=== PATIENT | female | born 1980 | race Caucasian/White ===

== ENCOUNTER 2022-01-14 19:24 | Emergency (ER) | payer BC, SELFPAY ==
[2022-01-14 19:30] VITALS: BP 153/84; PULSE 58; RESP 20; TEMP 36.8; O2SAT 100
--- NOTE | 2022-01-14 19:31 | ED.URI ---
HPI - URI/Sore Throat General Chief Complaint: Upper Respiratory Infection Stated Complaint: Sore Throat/Ear Pain Time Seen by Provider: 01/14/22 19:37 Source: patient and RN notes reviewed Mode of arrival: ambulatory Limitations: no limitations History of Present Illness HPI Narrative: 41-year-old female presents with concern for right ear pain and sore throat. She denies nasal congestion, rhinorrhea. Reports occasional cough. She denies fever, bodies, chills, sweats. Denies sick contacts. Denies [id number] intervention. MD elicited complaint: sore throat and other (Ear pain) Related Data Home Medications Medication Instructions Recorded Confirmed norgestimate 0.25 mg-ethinyl 1 tablet PO DAILY 01/14/22 01/14/22 estradiol 35 mcg tablet (Rosmery) trazodone 50 mg tablet 50 mg PO BID PRN sleep 01/14/22 01/14/22 Allergies Allergy/AdvReac Type Severity Reaction Status Date / Time No Known Allergies Allergy Verified 01/14/22 19:46 Review of Systems Review of Systems: CONSTITUTIONAL: Denies malaise, chills, sweats, or fever. EYES: Denies visual changes, redness, or discharge. ENT: Denies rhinorrhea, congestion, sinus pain. Reports otalgia and sore throat. CARDIOVASCULAR: Denies chest pain, palpitations, or edema. RESPIRATORY: Reports cough. Denies dyspnea. GASTROINTESTINAL: Denies abdominal pain, nausea, vomiting, diarrhea SKIN: Denies rash or itching. MUSCULOSKELETAL: Denies myalgia. NEUROLOGIC: Denies headache. All systems reviewed & are unremarkable except as noted in HPI and below PMFSH Past Medical History Medical History Anxiety History of PCOS Hyperlipidemia Insomnia Surgical History Surgical History H/O LEEP November 1999 H/O: November 2007 Family History Family History Grandparent Brain cancer Grandparent Heart disease Hypertension Graves disease Mother PAD (peripheral artery disease) Social History Social History Smoking status: Never smoker Tobacco type: e-cigarettes/vaping Second hand tobacco smoke exposure: No Alcohol intake: never Substance use: never Substance use type: does not use Comments At time of signature, agree with nursing past medical, surgical, social and family history. There is no relevant family history pertinent to the presenting complaint Exam Narrative: GENERAL: Well-appearing, well-nourished, and in no acute distress. HEAD: Normocephalic EYES: PERRLA, conjunctivae clear ENT: Nares clear, no discharge. Mucous membranes moist. TM pearly flores with dull light reflex bilaterally; no tragal tenderness. Oropharynx not erythematous without lesions. Tonsils not enlarged and without exudate, no drooling, no hoarseness, no trismus, uvula midline. NECK: Supple. No lymphadenopathy CHEST: Clear to auscultation, breath sounds equal. No wheezing, rhonchi, rales, or stridor. No respiratory distress, speaks in full sentences. HEART: Regular rate and rhythm. No murmur heard. SKIN: Warm, dry, no rash. NEURO: Alert and oriented x3. PSYCH: Normal mood and affect Course Course Emergency Course: Patient is aware of diagnosis, understands and agrees to treatment plan. Anticipatory guidance given. Patient agrees to follow-up as directed and is aware of reasons to seek care at the emergency department. Portions of this record may have been created with voice recognition software Level of Care: Express Care Visit Vital Signs Vital signs: Reviewed. MDM - URI/Sore Throat MDM Narrative Medical decision making narrative: Differential diagnosis considered: Juarez virus, strep pharyngitis, allergic rhinitis, upper respiratory tract infection, sinusitis, rhinosinusitis, nasopharyngitis. viral pharyngitis, otitis media, otitis externa, pneumonia, b
[2022-01-14 19:45] VITALS: BP 153/84; PULSE 58; RESP 20; TEMP 36.8; O2SAT 100
== END 2022-01-14 20:08 | disposition home or self-care (01) ==
PROVIDERS: Emergency Provider Nurse Practitioner; PCP Family Medicine
DX: J06.9 Acute upper respiratory infection, unspecified (principal); Z20.822 Contact with and (suspected) exposure to COVID-19; F17.290 Nicotine dependence, other tobacco product, uncomplicated; E28.2 Polycystic ovarian syndrome; E78.2 Mixed hyperlipidemia; F41.9 Anxiety disorder, unspecified
CPT/HCPCS: 87081; 87426; 87880; 99213; C9803; G0463

== ENCOUNTER 2024-09-28 16:51 | Emergency (ER) | payer BC, SELFPAY ==
[2024-09-28 16:57] VITALS: BP 142/75; PULSE 74; RESP 16; TEMP 37; O2SAT 100
--- NOTE | 2024-09-28 17:19 | ED.URI ---
HPI - URI/Sore Throat General Chief Complaint: Upper Respiratory Infection Stated Complaint: Passed Out/Congestion Time Seen by Provider: 09/28/24 17:15 Source: patient, RN notes reviewed and old records reviewed Mode of arrival: ambulatory Limitations: no limitations History of Present Illness HPI Narrative: 43 year old female who presents to [facility] care with complaints of having stuffy nose, sore throat and congestion increased since yesterday with fever up to 100.7F. Patient reports that she has had some sinus pressure and drainage for about 2 weeks and had been taking antihistamine. She states that yesterday morning she was sitting on toilet and next thing she knew she was on bathroom floor and dogs were licking her face. She states that she went back to bed and slept for 15 hours yesterday. She reports that she called her doctor and he recommended she get flu test. Patient states that she has been taking cold and flu medication. Patient reports that she had residential monitor done last year with no abnormality MD elicited complaint: sore throat, rhinorrhea, nasal congestion, sinus pain and other Onset (ago): week(s) (stuffy nose sore throat and congestion increased since yesteray and passed out, states some sinus congestion 2 weeks) Consistency: progressively worsening Pain scale (0-10): 5 Description of mucous: clear Able to tolerate fluids by mouth: Yes Treatments prior to arrival: other (cold and flu medication) Related Data Home Medications ?Medication ?Instructions ?Recorded ?Confirmed ?Last Taken ?Type norgestimate 0.25 mg-ethinyl 1 tablet PO DAILY 01/14/22 09/28/24 Unknown History estradiol 35 mcg tablet (Rosmery) Allergies Allergy/AdvReac Type Severity Reaction Status Date / Time No Known Allergies Allergy Verified 09/28/24 17:26 Review of Systems Review of Systems: CONSTITUTIONAL: reports malaise, chills, sweats, or fever. EYES: Denies visual changes, redness, or discharge. ENT: Reports rhinorrhea, congestion, sinus pain, no otalgia and positive for sore throat. CARDIOVASCULAR: Denies chest pain, palpitations, or edema. RESPIRATORY: Reports no acute cough.? Denies dyspnea. GASTROINTESTINAL: Denies abdominal pain, nausea, vomiting, diarrhea SKIN: Denies rash or itching. MUSCULOSKELETAL: some myalgia. NEUROLOGIC: intermittent headache. All systems reviewed & are unremarkable except as noted in HPI and below PMFSH Past Medical History Medical History Anxiety Insomnia History of PCOS Hyperlipidemia Surgical History Surgical History H/O LEEP November 1999 H/O: November 2007 Family History Family History Grandparent Brain cancer Grandparent Heart disease Hypertension Graves disease Mother PAD (peripheral artery disease) Social History Social History Smoking status: Current every day smoker Tobacco type: e-cigarettes/vaping Second hand tobacco smoke exposure: No Alcohol intake: never Substance use: never Substance use type: does not use Lack of Transportation: No Lack of Food: Never True Current Housing: I Have Housing Concerned About Future Housing: No Difficulty Paying Gas/Electric Bills: No Difficulty Paying for Meds: No Currently Unemployed: No Education: High School Diploma/GED Difficulty w/ Childcare or Family Care: No Living arrangements: with family Occupation/Education: occupation Gender identity (if verbalized by the patient): Female Agree to blood products: Yes Comments At time of signature, agree with nursing past medical, surgical, social and family history. There is no relevant family history pertinent to the presenting complaint Exam Narrative: GENERAL: Well-appearing, well-nourished, and in no acute distress. HEAD: Normocephalic EYES: PERRLA, conjunctivae clear ENT: Nares clear, turbinates edematous and erythematous, clear discharge. Mucous membranes moist, sinus pressure intermittent headache.. TM pearly flores with dull light reflex bilaterally; no tragal tenderness. Oropharynx erythematous without lesions. Tonsils not enlarged and without exudate, no drooling, no hoarseness, no trismus, uvula midline.post nasal drainage noted NECK: Supple. No lymphadenopathy CHEST: Clear to auscultation, breath sounds equal. No wheezing, rhonchi, rales, or stridor. No respiratory distress, speaks in full sentences.no acute cough, SAO2 100% on room air HEART: Regular rate and rhythm. No murmur heard. SKIN: Warm, dry, no rash. NEURO: Alert and oriented x3. PSYCH: Normal mood and affect Course Course Emergency Course: Patient is aware of diagnosis, understands and agrees to treatment plan.? Anticipatory guidance given.? Patient agrees to follow-up as directed and is aware of reasons to seek care at the emergency department. Portions of this record may have been created with voice recognition software Level of Care: Express Care Visit Vital Signs Vital signs: Vital Signs Temperature 37.0 C 09/28/24 16:57 Pulse Rate 74 09/28/24 16:57 Respiratory Rate 16 09/28/24 16:57 Blood Pressure 142/75 H 09/28/24 16:57 Pulse Oximetry 100 09/28/24 16:57 Oxygen Delivery Room Air 09/28/24 16:57 Temperature 37.0 C 09/28/24 16:57 Pulse Rate 74 09/28/24 16:57 Respiratory Rate 16 09/28/24 16:57 Blood Pressure 142/75 H 09/28/24 16:57 Pulse Oximetry 100 09/28/24 16:57 Oxygen Delivery Room Air 09/28/24 16:57 Reviewed MDM - URI/Sore Throat MDM Narrative Medical decision making narrative: Differential diagnosis considered: Juarez virus, strep pharyngitis, allergic rhinitis, upper respiratory tract infection, sinusitis, rhinosinusitis, nasopharyngitis. viral pharyngitis, otitis media, otitis externa, pneumonia, bronchitis, viral cough syndrome, viral syndrome, and influenza.? Exam findings show no acute concerns or changes; patient is non-toxic appearing and is in no distress.? Patient is appropriate for outpatient treatment and follow-up. Differential Diagnosis Differential diagnosis: Likely upper respiratory infection, sinusitis, viral infection, influenza and other (COVID) Medical Records Attestation: I reviewed the patient's medical records. Lab Data Attestation: I reviewed the patient's lab results. Lab results narrative: Influenza A negative, Influenza B negative, COVID antigen negative Labs: Lab Results 09/28/24 Range/Units 17:38 POC Influenza A Ag Negative (Negative) POC Influenza B Ag Negative (Negative) POC SARS CoV-2 Ag Negative (Negative) reviewed Critical Care Time Critical Care Time Critical Care Time: No Discharge Plan Discharge Clinical Impression: Sinusitis Qualifiers: Sinusitis location: pansinusitis Chronicity: acute Recurrence: not specified as recurrent Qualified Code(s): J01.40 - Acute pansinusitis, unspecified Patient Disposition: Home, Self-Care Condition: Stable Instructions: Antibiotic Form, Sinusitis (ED) Additional Instructions: Increase fluids especially juices and water [id number] cough and cold medicine of your choice for your symptoms Zyrtec Claritin or Lizbeth daily heat to the face 20-30 minutes 4-6 times a day for pain Salt water gargles, throat lozenges or throat sprays as desired Antibiotic as directed--finished the medication If your symptoms persist, change or worsen significantly before you can contact your personal physician then please, without delay, go to the emergency department for further evaluation. Follow-up with PCP in 7-10 days or sooner if needed Follow up with PCP soon in regards to your blood pressure which is elevated above threshold for referral. Blood pressure above 120/80 may indicate pre-hypertension. 142/75 Patient Language: Filipino Prescriptions: New amoxicillin 875 mg tablet 875 mg PO Q12H Qty: 20 0RF No Action norgestimate-ethinyl estradiol [Rosmery] 0.25-35 mg-mcg tablet 1 tablet PO DAILY buspirone 5 mg tablet See Rx Instructions PO BID PRN (Reason: anxiety) Qty: 60 1RF Rx Instructions: Take 1 or 2 tabs orally twice a day PRN; bupropion HCl 150 mg tablet extended release 24 hr 150 mg PO QAM Qty: 90 1RF diclofenac sodium 75 mg tablet,delayed release (DR/EC) 75 mg PO BID Qty: 60 2RF trazodone 50 mg tablet See Rx Instructions PO QHS PRN (Reason: sleep) Qty: 180 0RF Rx Instructions: Take 1 or 2 tabs orally every day at bedtime PRN; Follow-up/Referrals: Laverne Kearns NP [Primary Care Provider] - Time of Disposition: 17:43 Quality Darline Coma Scale Eyes: Open Verbal: Oriented and Alert Motor: Follows Commands Spencer Coma Total Score: 15
[2024-09-28 17:40] LABS: EDCOVIDSCREEN Negative (Negative); EDINFLUASCREEN Negative (Negative); EDINFLUBSCREEN Negative (Negative)
--- OUTSIDE RECORDS SUMMARY | 2024-09-28 18:31 | XMS_ITS | Clinical Summary ---
Author Organization [facility] Address [address] [place] [address] Care Team Providers Care Scrap Separator Name Role Phone Unknown, Notinfile Primary Care Provider Unavail able Yogesh Trujillo MD Unavailable Allergies No known active allergies Active Problems Problem Noted Date Diagnosed Date Blood glucose abnormal 09/26/2013 Overview (11/06/2016): ABNORMAL GLUCOSE NEC Pure hypercholesterolemia 01/10/2013 Overview (11/05/2016): PURE HYPERCHOLESTEROLEM Overweight 01/10/2013 Overview (11/06/2016): Overweight Abnormal weight gain 10/06/2011 Overview (11/06/2016): ABNORMAL WEIGHT GAIN Surgical History Surgery Date Site/Laterality Comments SECTION section TONSILLECTOMY Tonsillectomy Medical History Medical History Date Comments Hyperlipidemia Hyperlipidemia Hx Other Medical miscarriage Hx Other Medical NOT CLAUSTROPHO BIC; Comments: WORKMAN 05/04/2014 - Cervical ca (CMS/HCC) (HCC) 1999 Smoking Family History Medical History Relation Name Comments Obesity Father Obesity; Coronary artery disease Maternal Grandfather Coronary artery disease; Hypertension Maternal Grandfather Hyperte nsion; Hyperlipidemia Mother Hyperlipidemi a; Breast cancer Neg Hx Ovarian cancer Neg Hx Thyroid cancer Neg Hx Relation Name Status Comments Father Maternal Grandfather Mother Social History Tobacco Use Types Packs/Day Years Used Date Smoking Tobacco: Every Day Alcohol Use Standard Drinks/Week Comments No 0 (1 standard drink = 0.6 oz pur e alcohol) Comments No Sex and Gender Information Value Date Recorded Sex Assigned at Not on file Legal Sex Female 3:42 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 Gender Identity Not on file Sexual Orientation Not on file Obstetrics History Para Term AB IAB SAB Ectopic Multiple Livin g Live Births 4 1 1 Date Outcome GA Total Labor Labor/2nd/3rd Weight Sex Type Anes PTL Lisa A1 A5 Name Clin Term Last Filed Vital Signs Vital Sign Reading Time Taken Comments Blood Pressure 102/70 05/04/2014 8:32 AM CDT Pulse 88 05/04/2014 8:32 AM CDT Temperature - - Respiratory Rate - - Oxygen Saturation - - Inhaled Oxygen Concentration - - Weight 81.6 kg (180 lb) 05/04/2014 8:32 AM CDT Height 154.9 cm (5' 1 ) 06/11/2022 1:43 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 Body Mass Index 32.92 05/04/2014 8:32 AM CDT Plan of Treatment Health Maintenance Due Date Last Done Comments Cervical Cancer Screening 1981 Depression Screening 1981 Hepatitis C Screening 1981 DTaP/Tdap/Td Vaccine (1 - Tdap) 1992 Varicella Vaccines (1 of 2 - 13+ 2-dose series) 1994 Hepatitis B Screening 12/02/1999 Regular Well Visit/Exam 18-64 12/02/1999 Pneumococcal vaccine <65 (1 of 2 - PCV) 2000 Covid-19 Vaccine ( - 2023-2 5 season) 2024 08/17/2021, 11/08/2020 Influenza Vaccine (#1) 2024 05/04/2020 Breast Cancer Screening-Mammogram 10/12/2024 10/13/2023, 06/11/2022 HPV Vaccines Aged Out No longer eligi ble based on patient's age to complete this topic Procedures Procedure Name Priority Date/Time Associated Diagnosis Comments SCREENING MAMMOGRAM BILATERAL W FAMILIA Schedule Routine, Read Routine (OP Routine) 10/13/2023 11:28 AM CDT Screening mammogram, encounter for from Last 3 Months or Most Recently Relevant to Health Maintenance Results * Screening Mammogram Bilateral W Familia (10/13/2023 11:28 AM CDT) Anatomical Region Laterality Modality Breast Bilateral Mammography 10/13/2023 12:3 2 PM CDT Impressions 10/13/2023 12:32 PM CDT There is no mammographic evidence of malignancy. A 1 year screening mammogram is recommended. BI-RADS: 1 - Negative. The patient has been or will be contacted. The patient will be entered into a reminder system with a target due date of 1 year for her next mammogram. Electronically signed by: PENELOPE Butts 10/13/2023 12:32 PM CDT EXAMINATION: SCREENING MAMMOGRAM BILATERAL W FAMILIA ORDERING HEALTHCARE PROVIDER: SELF SCREENING MAMMOGRAM HISTORY: Routine screening mammography. COMPARISON: 06/11/2022. TECHNIQUE: CC and MLO views of both breasts were obtained with digital technique using digital breast tomosynthesis with C view. Computer aided detection was utilized. FINDINGS: DENSITY: The breasts are heterogeneously dense, which may obscure small masses. BREASTS: There is no new suspicious finding in either breast on mammogram. us Self Screening Mammogram IMG MAMMO PROCEDURES Fi nal Result from Last 3 Months or Most Recently Relevant to Health Maintenance Insurance [facility] Care Teams Scrap Separator Relationship Specialty Start Date End Date Unknown, Notinfile PCP - General 08/25/23 Yogesh Trujillo MD [address] [facility] [address] JARON Tran [address] [address] Consulting Physician Obstetrics and Gynecology 08/25/23
--- OUTSIDE RECORDS SUMMARY | 2024-09-28 18:31 | XMS_ITS | Referral Summary ---
Author Organization [facility] Address [address] [place] [address] Care Team Providers Care Equipment Mechanic Specialist Name Role Phone Unknown, Notinfile Primary Care Provider Unavail able Yoegsh Trujillo MD Unavailable [phone] Allergies No known active allergies Active Problems Problem Noted Date Diagnosed Date Blood glucose abnormal 09/26/2013 Overview (11/06/2016): ABNORMAL GLUCOSE NEC Pure hypercholesterolemia 01/10/2013 Overview (11/05/2016): PURE HYPERCHOLESTEROLEM Overweight 01/10/2013 Overview (11/06/2016): Overweight Abnormal weight gain 10/06/2011 Overview (11/06/2016): ABNORMAL WEIGHT GAIN Social History Tobacco Use Types Packs/Day Years Used Date Smoking Tobacco: Every Day Alcohol Use Standard Drinks/Week Comments No 0 (1 standard drink = 0.6 oz pur e alcohol) Comments No Sex and Gender Information Value Date Recorded Sex Assigned at Not on file Legal Sex Female 3:42 PM [employer] LIBRARIAN Gender Identity Not on file Sexual Orientation Not on file Last Filed Vital Signs Vital Sign Reading Time Taken Comments Blood Pressure 102/70 05/04/2014 8:32 AM CDT Pulse 88 05/04/2014 8:32 AM CDT Temperature - - Respiratory Rate - - Oxygen Saturation - - Inhaled Oxygen Concentration - - Weight 81.6 kg (180 lb) 05/04/2014 8:32 AM CDT Height 154.9 cm (5' 1 ) 06/11/2022 1:43 PM [employer] MUSIC LIBRARIAN Body Mass Index 32.92 05/04/2014 8:32 AM CDT Plan of Treatment Not on file Procedures Procedure Name Priority Date/Time Associated Diagnosis [...] Most Recently Relevant to Health Maintenance Insurance [facility] Care Teams Equipment Mechanic Specialist Relationship Specialty Start Date End Date Unknown, Notinfile PCP - General 08/25/23 Yogesh Trujillo MD [address] [place] [address] [place] [address] Consulting Physician Obstetrics and Gynecology 08/25/23
--- OUTSIDE RECORDS SUMMARY | 2024-09-28 18:32 | XMS_ITS | Data Portability ---
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 no new issues. 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 does well on OCPs first mammo order today son is 14 plays football. Not available 04/22/2022 17:18:18 04/28/2023 04/28/2023 educator senior clinical exam benign doing well on OCPs good spirits 16 y.o. 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 Lab cytology report, thin prep, smear or scraping, cervical or vaginal 2023 024 [facility], [address] [facility], [address], [place], [address], 4 16:13:44 vaginal pathogens panel, DANETTE+probe, vaginal fluid 2023 024 [facility], [address], [address], [place], [address], 4 07:16:16 cytology report, thin prep, smear or scraping, cervical or vaginal 2022 023 [facility], [address] [facility], [address], [place], [address], 3 07:17:24 cytology report, thin prep, smear or scraping, cervical or vaginal 2021 022 [facility], [address], [address], [place], [address], 2 16:11:22 cytology report, thin prep, smear or scraping, cervical or vaginal 2020 021 [facility], [address], [address], [place], [address], 1 16:12:02 Referral None recorded. Procedures None recorded. Surgeries None recorded. Imaging MAMMO, screening, digital, bilateral 2023 024 [facility], [address] [facility] [place], [address], 4 09:55:37 MAMMO, screening, digital, bilateral 2022 023 [facility], [address] [facility] [place], [address], 4 17:10:59 MAMMO, screening, digital, bilateral [facility] [address] [facility] [place], [address], 2 17:28:23 Medication Orders Estarylla 0.25 mg-35 mcg tablet 2023 024 [id number], [address], [place], [place], [id number], 4 14:45:16 Estarylla 0.25 mg-35 mcg tablet 2022 023 [id number], [address] [place], [place], [id number], 16:24:03 Patient TargetsNo targets recorded. Patient Instructions Encounter Date Encounter Id Patient Instructions Last Modified By Organization Details Last Modified Time 04/22/2022 [id number] learning about breast cancer screening er Not available 04/22/2022 17:11:41 04/28/2023 [id number] A healthy lifestyle: care instructions Not available 04/28/2023 16:09:57 learning about breast cancer screening er Not available 04/28/2023 16:09:57 05/27/2024 [id number] mammogram: about this test Not available 05/27/2024 15:28:02 A healthy lifestyle: care instructions Not available 05/27/2024 15:28:02 Quitting Tobacco : Care Instructions [email or web address] Not available 05/27/2024 15:28:02 Reason for Referral None Reported. Results Created Date Observation Date Name Description Value Unit Range Abnormal Flag Note LastModifiedBy Organization Detail LastModifiedTime 04/16/2004/18/2021 IGP, RFX APTIM A HPV ASCU diagnosis: Commen t NEGAT PAGE FOR INTRA EPITH ELIAL LESIO N OR ROBIN MORAN . Not Available [facility] ([facility]) [address] [facility], [place], [address], 04/18/2021 16:12:02 04/16/20 21 04/18/2021 IGP, RFX APTIM A HPV ASCU specimen adequacy: Raoul leung Satis facto ry for evalu ation . Endoc ervic al and/o r squam ous metap lasti c cells (endo cervi erlinda compo nent) are prese nt. Not Available [facility] ([facility]) [address] [place], [address], 04/18/2021 16:12:02 04/16/20 21 04/18/2021 IGP, RFX APTIM A HPV ASCU clinician provided ICD10: Raoul leung Z01.4 19 Not Available [facility] ([facility]) [address] [place], [address], 04/18/2021 16:12:02 04/16/20 21 04/18/2021 IGP, RFX APTIM A HPV ASCU performed by: Shavon Sheffield (ASCP ) Not Available [facility] ([facility]) [address] [place], [address], 04/18/2021 16:12:02 04/16/20 21 04/18/2021 IGP, RFX APTIM A HPV ASCU . . Not Available [facility] ([facility]) [address] [place], [address], 04/18/2021 16:12:02 04/16/20 21 04/18/2021 IGP, RFX APTIM A HPV ASCU note: Raoul leung The Pap smear is a scree rolf test desig antonio to aid in the detec tion of angus ligna nt and malig nant condi tions of the uteri ne cervi x. It is not a diagn ostic proce dure and shoul d not be used as the sole means of detec ting cervi erlinda cance r. Both false -posi tive and false -nega tive repor ts do occur . Not Available [facility] ([facility]) [address] [place], [address], 04/18/2021 16:12:02 04/16/20 21 04/18/2021 IGP, RFX APTIM A HPV ASCU test methodology: Commen t This liqui d based ThinP rep(R ) pap test was chelsea antonio with the use of an image guide jenn shelton. Not Available [facility] ([facility]) [address] [place], [address], 04/18/2021 16:12:02 04/16/20 21 04/18/2021 IGP, RFX APTIM A HPV ASCU . Commen t The HPV DNA refle x crite hubert were not met with this speci men resul t there fore, no HPV testi ng was perfo rmed. Not Available [facility] ([facility]) [address] [place], [address], 04/18/2021 16:12:02 04/22/20 22 04/28/2022 IGP, RFX APTIM A HPV ASCU diagnosis: Commen t NEGAT PAGE FOR INTRA EPITH ELIAL LESIO N OR MALMATY MORAN . PREDO ESPERANZA CE OF COCCO BACIL LI CONSI STENT WITH SHIFT IN VAGIN AL ALLEN IS PRESE NT. Not Available [facility] ([facility]) [address] [place], [address], 04/28/2022 16:11:22 04/22/20 22 04/28/2022 IGP, RFX APTIM A HPV ASCU specimen adequacy: Commen t Satis facto ry for evalu ation . Endoc ervic al and/o r squam ous metap lasti c cells (endo cervi erlinda compo nent) are prese nt. Not Available [facility] ([facility]) [address] [place], [address], 04/28/2022 16:11:22 04/22/20 22 04/28/2022 IGP, RFX APTIM A HPV ASCU clinician provided ICD10: Commen t Z01.4 19 Not Available [facility] ([facility]) [address] [place], [address], 04/28/2022 16:11:22 04/22/20 22 04/28/2022 IGP, RFX APTIM A HPV ASCU performed by: Raoul Bosch [facility] ick, Cytot connie leung (ASCP ) Not Available [facility] ([facility]) [address] [place], [address], 04/28/2022 16:11:22 04/22/20 22 04/28/2022 IGP, RFX APTIM A HPV ASCU . . Not Available [facility] ([facility]) [address] [place], [address], 04/28/2022 16:11:22 04/22/20 22 04/28/2022 IGP, RFX APTIM A HPV ASCU note: Raoul leung The Pap smear is a scree orlf test desig antonio to aid in the detec tion of angus ligna nt and malig nant condi tions of the uteri ne cervi x. It is not a diagn ostic proce dure and shoul d not be used as the sole means of detec ting cervi erlinda cance r. Both false -posi tive and false -nega tive repor ts do occur . Not Available [facility] ([facility]) [address] [place], [address], 04/28/2022 16:11:22 04/22/20 22 04/28/2022 IGP, RFX APTIM A HPV ASCU test methodology: - The Thin Prep( R) Image r was unabl e to read this speci men. There fore a manua l revie w was perfo rmed. Not Available [facility] ([facility]) [address] [place], [address], 04/28/2022 16:11:22 04/22/20 22 04/28/2022 IGP, RFX APTIM A HPV ASCU . Raoul leung The HPV DNA refle x crite hubert were not met with this speci men julito t there fore, no HPV testi ng was perfo rmed. Not Available [facility] ([facility]) [address] [place], [address], 04/28/2022 16:11:22 04/28/20 23 05/01/2023 IGP, RFX APTIM A HPV ASCU diagnosis: Raoul leung abnormal EPITH ELIAL CELL ABNOR MALIT Y. ATYPI ERLINDA SQUAM OUS CELLS OF UNDET ERMIN ED SIGNI FICAN CE (ASC- US). Not Available [facility] ([facility]) [address] [place], [address], 05/02/2023 07:17:23 04/28/20 23 05/01/2023 IGP, RFX APTIM A HPV ASCU specimen adequacy: Raoul leung Satis facto ry for evalu ation . Endoc ervic al and/o r squam ous metap lasti c cells (endo cervi erlinda compo nent) are prese nt. Not Available [facility] ([facility]) [address] [place], [address], 05/02/2023 07:17:23 04/28/20 23 05/01/2023 IGP, RFX APTIM A HPV ASCU clinician provided ICD10: Raoul leung Z01.4 19 Not Available [facility] ([facility]) [address] [place], [address], 05/02/2023 07:17:23 04/28/20 23 05/01/2023 IGP, RFX APTIM A HPV ASCU performed by: Raoul bustos, Cytot connie leung (ASCP ) Not Available [facility] ([facility]) [address] [place], [address], 05/02/2023 07:17:23 09/26/20 23 05/01/2023 IGP, RFX APTIM A HPV ASCU electronical ly signed by: Raoul Gonzales MD, Patho jovanna t Not Available [facility] ([facility]) [address] [place], [address], 05/02/2023 07:17:23 04/28/20 23 05/01/2023 IGP, RFX APTIM A HPV ASCU . . Not Available [facility] ([facility]) [address] [place], [address], 05/02/2023 07:17:23 04/28/2005/01/2023 IGP, RFX APTIM A HPV ASCU pathologist provided ICD10: Raoul leung R87.6 10 Not Available [facility] ([facility]) [address] [place], [address], 05/02/2023 07:17:23 04/28/2005/01/2023 IGP, RFX APTIM A HPV ASCU note: Raoul leung The Pap smear is a scree rolf test desig antonio to aid in the detec tion of angus ligna nt and malig nant condi tions of the uteri ne cervi x. It is not a diagn ostic proce dure and shoul d not be used as the sole means of detec ting cervi erlinda cance r. Both false -posi tive and false -nega tive repor ts do occur . Not Available [facility] ([facility]) [address] [place], [address], 05/02/2023 07:17:23 04/28/2005/01/2023 IGP, RFX APTIM A HPV ASCU test methodology: Raoul leung This liqui d based ThinP rep(R ) pap test was scree antonio with the use of an image guide jenn hernandez Not Available [facility] ([facility]) [address] [place], [address], 05/02/2023 07:17:23 04/28/2005/01/2023 IGP, RFX APTIM A HPV ASCU . Commen t See below for HPV testi ng resul ts. Not Available [facility] ([facility]) [address] [facility], [place], [address], 05/02/2023 07:17:23 04/28/2005/02/2023 HPV APTIM A HPV aptima Negati ve negati ve This nucle ic acid ampli ficat ion test detec ts fourt een high- risk HPV types (16,1 8,31, 33,35 ,39,4 5,51, 52,56 ,58,5 9,66, 68) witho ut diffe renti ation . Not Available [facility] ([facility]) [address] [facility], [place], [address], 05/02/2023 07:17:24 02/23/20 24 02/25/2024 NUSWA B VAGIN ITIS PLUS (VG+) atopobium vaginae HIGH - 2 score abnormal Not Available [facility] ([facility]) [address] [facility], [place], [address], 02/25/2024 07:16:16 02/23/20 24 02/25/2024 NUSWA B VAGIN ITIS PLUS (VG+) bvab 2 HIGH - 2 score abnormal Not Available [facility] ([facility]) [address] [place], [address], 02/25/2024 07:16:16 02/23/20 24 02/25/2024 NUSWA B VAGIN ITIS PLUS (VG+) megasphaera 1 HIGH - 2 score abnormal Calcu late total score by brendon g the 3 indiv idual bacte rial vagin osis (BV) marke r score s toget her. Total score is inter prete d as follo ws: Total score 0-1: Indic ates the absen ce of BV. Total score 2: Indet ravinderin ate for BV. Addit ional clini erlinda data shoul d be evalu ated to estab john a diagn osis. Total score 3-6: Indic ates the prese nce of BV. Not Available [facility] ([facility]) [address] [facility], [place], [address], 02/25/2024 07:16:16 02/23/20 24 02/25/2024 NUSWA B VAGIN ITIS PLUS (VG+) maria del carmen albicans, DANETTE NEGATI VE negati ve Not Available [facility] ([facility]) [address] [facility], [place], [address], 02/25/2024 07:16:16 02/23/20 24 02/25/2024 NUSWA B VAGIN ITIS PLUS (VG+) maria del carmen glabrata, DANETTE NEGATI VE negati ve Not Available [facility] ([facility]) [address] [facility], [place], [address], 02/25/2024 07:16:16 02/23/20 24 02/25/2024 NUSWA B VAGIN ITIS PLUS (VG+) trich vag by DANETTE NEGATI VE negati ve Not Available [facility] ([facility]) [address] [place], [address], 02/25/2024 07:16:16 02/23/2002/25/2024 NUSWA B VAGIN ITIS PLUS (VG+) chlamydia trachomatis, DANETTE NEGATI VE negati ve Not Available [facility] ([facility]) [address] [place], [address], 02/25/2024 07:16:16 02/23/20 24 02/25/2024 NUSWA B VAGIN ITIS PLUS (VG+) neisseria gonorrhoeae, DANETTE NEGATI VE negati ve Not Available [facility] ([facility]) [address] [place], [address], 02/25/2024 07:16:16 05/27/2005/30/2024 IGP,C TNGTV ,RFX APTIM A HPV ASCU chlamydia, nuc. acid amp NEGATI VE negati ve Not Available [facility] ([facility]) [address] [place], [address], 06/03/2024 16:13:44 05/27/2005/30/2024 IGP,C TNGTV ,RFX APTIM A HPV ASCU gonococcus, nuc. acid amp NEGATI VE negati ve Not Available [facility] ([facility]) [address] [place], [address], 06/03/2024 16:13:44 05/27/2005/30/2024 IGP,C TNGTV ,RFX APTIM A HPV ASCU trich vag by DANETTE NEGATI VE negati ve Not Available [facility] ([facility]) [address] [place], [address], 06/03/2024 16:13:44 05/27/2006/03/2024 IGP,C TNGTV ,RFX APTIM A HPV ASCU diagnosis: COMMEN T NEGAT PAGE FOR INTRA EPITH ELIAL LESIO N OR ROBIN MORAN . Not Available [facility] ([facility]) [address] [place], [address], 06/03/2024 16:13:44 05/27/2006/03/2024 IGP,C TNGTV ,RFX APTIM A HPV ASCU specimen adequacy: COMMEN T Satis facto ry for evalu ation . Endoc ervic al and/o r squam ous metap lasti c cells (endo cervi erlinda compo nent) are prese nt. Not Available [facility] ([facility]) [address] [place], [address], 06/03/2024 16:13:44 05/27/2006/03/2024 IGP,C TNGTV ,RFX APTIM A HPV ASCU clinician provided ICD10: RAOUL Leung Z01.4 19 Not Available [facility] ([facility]) [address] [place], [address], 06/03/2024 16:13:44 05/27/20 24 06/03/2024 IGP,C TNGTV ,RFX APTIM A HPV ASCU performed by: RAOUL snow, Shavon leung (ASCP ) Not Available [facility] ([facility]) [address] [place], [address], 06/03/2024 16:13:44 05/27/2006/03/2024 IGP,C TNGTV ,RFX APTIM A HPV ASCU . . Not Available [facility] ([facility]) [address] [place], [address], 06/03/2024 16:13:44 05/27/20 24 06/03/2024 IGP,C TNGTV ,RFX APTIM A HPV ASCU note: RAOUL Leung The Pap smear is a scree rolf test desig antnoio to aid in the detec tion of angus ligna nt and malig nant condi tions of the uteri ne cervi x. It is not a diagn ostic proce dure and shoul d not be used as the sole means of detec ting cervi erlinda cance r. Both false -posi tive and false -nega tive repor ts do occur . Not Available [facility] ([facility]) [address] [place], [address], 06/03/2024 16:13:44 05/27/2006/03/2024 IGP,C TNGTV ,RFX APTIM A HPV ASCU test methodology: RAOUL Leung This liqui d based ThinP rep(R ) pap test was scree antonio with the use of an image guide jenn systbradly shelton. Not Available [facility] ([facility]) [address] [place], [address], 06/03/2024 16:13:44 05/27/20 24 06/03/2024 IGP,C TNGTV ,RFX APTIM A HPV ASCU . COMMEN T The HPV DNA refle x crite hubert were not met with this speci men resul t there fore, no HPV testi ng was perfo rmed. Not Available [facility] ([facility]) [address] [facility], [place], [address], 06/03/2024 16:13:44 10/13/19 24 10/13/2023 MAMMO , scree rolf, digit al, bilat eral No observ ation record ed. [email or web address] [address] , [place], [address], 10/13/2023 17:11:27 Result Notes None recorded. Problems Name Problem SNOMED Code Status Onset Date Resolution Date Notes Provider Name and Address Organization Details Recorded Time Polycystic ovaries Active Kaushik Vo null, [place] - [facility] 5 12:21:54 Cervical intraepithel ial neoplasia grade 1 143559729 Active Amairani Lerma MD Attn: Rabia singer,[address] [facility], [place], [address] , [place] [facility] 5 10:35:54 Anxiety 36145531 Active Kaushik Vo [place], [place] [facility] 5 11:15:42 Moderate anxiety 31468267 Active Amairani Lerma MD Attn: Rabia singer,[address] [place], [address], [place] [facility] 4 10:38:51 Hyperlipidem ia 70799748 Active off meds for several monts Hermelindoko Contis null, [place] [facility] 5 10:18:44 Insomnia 432858456 Active Kaushik Vo null[place] [facility] 11:15:42 Headache 58237065 Active Kaushik Vo [place], [place] [facility] 5 11:15:42 Chest wall tenderness 613364512 Active Kaushik Vo null, [facility] 5 11:15:42 Problem Notes None recorded. Procedures Surgical History Date Name Laterality Status Provider Name and Address Organization Details Recorded Time 4 Date of Last Pap Smear completed Acacia Brooks RN [facility] 06/03/2024 16:23:13 4 Most Recent Mammogram completed Acacia Brooks RN [facility] 10/13/2023 17:11:34 8 Caesarean Section completed Betsy Costello MA [facility] 11/10/2014 14:01:13 0 LEEP completed Betsy Costello MA [facility] 11/10/2014 14:01:13 Imaging Results Imaging Date Name Status LastModified by [facility] Details LastModified Time 10/13/2023 MAMMO, screening, digital, bilateral completed jessica Morelos [address] [facility] , [place], [address], 10/13/2023 17:11:27 Procedure Notes None recorded. Medical Equipment None Reported. Allergies No known drug allergies Medications Name Sig Start Date Stop Date Status Note LastModified by Organization Details LastModified Time buspirone 5 mg tablet TAKE 1 OR 2 TABLETS BY MOUTH TWICE A DAY NEEDED FOR ANXIETY active Not Available Not Available No t Available trazodone 50 mg tablet TAKE 1 TO 2 TABLETS BY MOUTH EVERY DAY AT BEDTIME NEEDED FOR SLEEP active Not Available Not Available No t Available fluconazole 150 mg tablet Take 1 tablet every day by oral route as needed for 1 day. active Not Available Not Available No t Available metronidazol e 500 mg tablet Take 1 tablet every 12 hours by oral route for 7 days. active Not Available Not Available No t Available Macrobid 100 mg capsule Take 1 capsule every 12 hours by oral route for 7 days. 04/03 completed Not Available Not Available Not Available terbinafine HCl 250 mg tablet TAKE 1 TABLET BY MOUTH EVERY DAY active Not Available Not Available No t Available Cipro 500 mg tablet Take 1 tablet every 12 hours by oral route for 5 days. 2014 active Not Available Not Available Not Avai lable bupropion HCl 75 mg tablet TAKE 1 TABLET BY MOUTH TWICE A DAY 04/23 completed Not Available Not Available Not Available diclofenac sodium 75 mg tablet,delay ed release TAKE 1 TABLET BY MOUTH TWICE DAILY active Not Available Not Available No t Available zolpidem 5 mg tablet TAKE 1-1.5 TABLETS BY MOUTH EVERY NIGHT AT BEDTIME NEEDED FOR SLEEP 04/23 completed Not Available Not Available Not Available Paxil 10 mg tablet Take 1 tablet every day by oral route. 11/10 completed Not Available Not Available Not Available fluoxetine 20 mg capsule TAKE 1 CAPSULE BY MOUTH ONCE DAILY 04/23 completed Not Available Not Available Not Available bupropion HCl XL 150 mg 24 hr tablet, extended release TAKE 1 TABLET BY MOUTH EVERY MORNING active Not Available Not Available No t Available Estarylla 0.25 mg-35 mcg tablet TAKE ONE TABLET BY MOUTH DAILY active Not Available Not Available No t Available [facility] 120 mg tablet,exten ded release TAKE ONE TABLET BY MOUTH EVERY 12 HOURS NEEDED 04/23 completed Not Available Not Available Not Available Vitals Date Recorded Body weight Systolic blood pressure Diastolic blood pressure Provider Name and Address Organization Details Last Updated DateTime 04/16/2021 74470.44 g 118 mm[Hg] 76 mm[Hg] Radha Quan [facility] 04/16/2021 15:43:11 Date Recorded Body height Body mass index (BMI) Body weight Systolic blood pressure Diastolic blood pressure Provider Name and Address Organization Details Last Updated DateTime 04/22/2022 156.21 cm 28.3 kg/m2 67767.12 g 116 mm[Hg] 72 mm[Hg] Radha Quan [facility] 16:42:41 Date Recorded Body weight Systolic blood pressure Diastolic blood pressure Provider Name and Address Organization Details Last Updated DateTime 04/28/2023 72834.66 g 126 mm[Hg] 78 mm[Hg] Radha Quan [facility] 04/28/2023 16:05:21 Date Recorded Body height Body mass index (BMI) Body weight Systolic blood pressure Diastolic blood pressure Provider Name and Address Organization Details Last Updated DateTime 02/23/2024 156.21 cm 29 kg/m2 99774.7 g 129 mm[Hg] 74 mm[Hg] Radha Quan [place] - [facility] 4 16:01:51 Date Recorded Body height Body mass index (BMI) Body weight Systolic blood pressure Diastolic blood pressure Provider Name and Address Organization Details Last Updated DateTime 05/27/2024 156.21 cm 28.5 kg/m2 04164.92 g 127 mm[Hg] 77 mm[Hg] Radha Quan [facility] 4 14:19:20 Social History Question Answer Notes LastModified by Organizat ion Details LastModified Time Tobacco Smoking Status Former Smoker RAJ Watts, [place] - [facility] 11/10/2014 14:01:13 What Is Your Level Of Alcohol Consumption? Occasional [email or web address] Information not available 11/10/2014 What Is Your Level Of Caffeine Consumption? Moderate [email or web address] Information not available 11/10/2014 In The 14 Days Before Symptom Onset, Have You Had Close Contact With A Laboratory-confir med COVID-19 While That Case Was Ill? No Information not available 04/22/2022 In The 14 Days Before Symptom Onset, Have You Had Close Contact With A Person Who Is Under Investigation For COVID-19 While That Person Was Ill? No Information not available 04/22/2022 Have You Been To An Area Known To Be High Risk For COVID-19? No Information not available 04/22/2022 Do You Or Have You Ever Used E-cigarettes Or Vape? Current User Of Electronic Cigarettes Information not available 05/27/2024 Live Alone Or With Others? With Others [email or web address] Information not available 11/10/2014 What Was The Date Of Your Most Recent Tobacco Screening? 05/27/2024 Information not available 05/27/2024 How Many Children Do You Have? 1 [email or web address] Information not available 11/10/2014 What Is Your Relationship Status? Single [email or web address] Information not available 07/07/2014 How Much Tobacco Do You Smoke? No Information not available 11/10/2014 Has Tobacco Cessation Counseling Been Provided? Yes Information not available 05/27/2024 On What Date Was Tobacco Cessation Counseling Provided? 05/27/2024 Information not available 05/27/2024 Do You Or Have You Ever Used Any Other Forms Of Tobacco Or Nicotine? Yes Information not available 05/27/2024 Sex: Female Functional Status Question Answer Note LastModified by Organization D etails LastModified Time Are you able to care for yourself? Yes [email or web address] Information n ot available 11/10/2014 Mental Status None recorded. Family History Relationship Description Onset Age of this Age Resolved Age Notes LastModified by Organization Details LastModified Time Mother Hypercholest erolemia [email or web address] Not available 08/2014 10:19:37 Mother Insomnia [email or web address] Not availa ble 04/03/2015 10:19:37 Maternal Grandmother Insomnia [email or web address] Not available 0 04/03/2015 10:19:37 Medical History Condition Response Kidney or Bladder Problems Y High Cholesterol Y Gynecological History Statement/Question Response Abnormal Pap Yes Flow Moderate STIs/STDs Y Duration of Flow (days) 5 Most Recent Mammogram 10/13/2023 Current Control Method BCPs Age at First Child 27 Frequency of Cycle (Q days) 29 Sexually Active? Y Menses Monthly Y Date of Last Pap Smear 05/27/2024 Sexual Problems? N LMP Definite Obstetrics History GPAL:G 4 P 1 0 3 1 Type Value Full Term 1 Induced 1 Spontaneous 2 Living 1 Total 4 Immunizations Vaccine Type Date Status Note Provider Nam e and Address Organization Details Recorded Time Influenza, MDCK, quadrivalent, PF 05/04/2020 completed ALEX [place]A [place], [place] [facility] 05/27/2024 14:13:33 COVID-19, mRNA, LNP-S, PF, 30 mcg/0.3 mL dose 08/17/2021 completed Radha Quan [place] [facility] 05/27/2024 14:13:33 COVID-19 vaccine, vector-nr, rS-Ad26, PF, 0.5 mL 11/08/2020 completed Radha Qu[place] [facility] 05/27/2024 14:13:33 Influenza, split virus, quadrivalent, PF 06/12/2022 completed Radha Quan [place] [facility] 05/27/2024 14:13:33 Past Encounters Encounter ID Performer Location Encounter Start Date Encounter Closed Date Diagnosis/Indication Diagnosis SNOMED-CT Code Diagnosis ICD10 Code Diagnosis Note [id number] RAJ Watts ([facility] 205) [address] [facility] [place] [address] 07/07/2014 09:54:18 07/07/2014 13:13:36 Gynecologic examination 77654757 Moderate anxiety 42322608 [id number] Kaushik Antoine ([facility]) [address] [place] [place] [address] 11/10/2014 13:42:48 11/10/2014 15:03:54 Adult health examination 939572573 Anxiety 23336289 Polycystic ovaries 50130981 [id number] Leanne Hirsch ([facility] 205) [address] [place] [address] 12/05/2014 09:48:10 12/05/2014 11:52:01 Cervical intraepithelial neoplasia grade 1 [id number] Kaushik Antoine ([facility]) [address] [place] [address] 04/03/2015 09:35:58 04/03/2015 11:57:16 Insomnia 680360182 Anxiety 19308676 Patient complains of not being able to turn off her thoughts. Falls asleep initially but awakens with worrying about possible future events. Headache 35215185 patien t has been advised to get eye exam, increase sleep time if possible, work on reducing anxiety and avoiding foods known to trigger headache. Keep a headache diary. Chest wall tenderness 322760234 Vague discomfort that is like a band around chest wall, follows underwire bra line. Patient advised to refrain from wearing underwired garments and remove any sources of restrictiv e pressure. [id number] MD Leanne Klein ([facility] 205) [address] [place] [address] 07/12/2015 09:42:09 07/12/2015 10:30:58 Gynecologic examination 51759432 Z01.755 [id number] MD Leanne Klein ([facility] 205) [address] [facility] [place] [address] 09/19/2016 09:56:24 09/19/2016 15:31:45 Gynecologic examination 51764570 Z01.112 [id number] MD Leanne Klein 14 OB [address] [facility] [place] [address] 03/30/2018 15:52:13 03/30/2018 16:45:25 Gynecologic examination 81973345 Z01.750 [id number] MD Leanne Klein 14 OB [address] [facility] [place] [address] 04/05/2019 14:53:35 04/06/2019 08:59:50 Gynecologic examination 03116844 Z01.419 Contracept ion care management 372329626 Z30.9 [id number] Radha Quan [facility] Leanne 14 OB [address] [facility] [place] [address] 04/10/2020 15:31:58 04/11/2020 11:26:28 Gynecologic examination 22202755 Z01.419 Contracept ion care management 492269207 Z30.9 [id number] MD Leanne Klein 14 OB [address] [facility] [place] [address] 04/16/2021 15:25:25 04/17/2021 12:03:06 Gynecologic examination 24896903 Z01.416 [id number] MD Leanne Klein 14 OB [address] [facility] [place] [address] 04/22/2022 16:12:50 04/25/2022 06:53:08 Gynecologic examination 97123421 Z01.419 Screening for malignant neoplasm of breast 796207378 Z12.39 [id number] MD Leanne Klein 14 OB [address] [facility] [place] [address] 04/28/2023 15:50:05 04/29/2023 10:10:45 [facility] 303959979 E66.3 Gynecologi c examination 75811881 Z01.419 Screening for malignant neoplasm of breast 166857586 Z12.39 Contracept ion care management 737941531 Z30.9 [id number] MD Leanne Klein 14 OB [address] [facility] [place] [address] 02/23/2024 15:54:40 02/24/2024 19:56:03 Vaginal discharge 995022886 N89.8 [id number] Amairani Lerma MD [place] [address] [facility] [address] [place] [address] 05/27/2024 13:58:32 06/02/2024 11:21:01 Screening mammography 28425012 Z12.31 Overweight 542393137 E66 .3 Smoker 69236653 F17.200 Depression screening 171 703725 Z13.31 Gynecologi c examination 94800091 Z01.419 Contracept ion care management 820555451 Z30.9 Health Concerns Section Related Observation LastModified by Organization Detai ls LastModified Time None Recorded Concern Status LastModified by Organization Details LastModified Time None Recorded Advance Directives Directive None Recorded Payers Encounter Date Sequence Insurance Name Policy Number Policy Waters Covered Member ID Waters Member ID Guarantor Name 04/16/2021 1 [place] [id number] Monique N Nguyen [id number] Monique N Nguyen 04/22/2022 1 [place] [id number] Monique N Nguyen [id number] Monique N Nguyen 04/28/2023 1 [place] [id number] Monique N Nguyen [id number] Monique N Nguyen 02/23/2024 1 [place] [id number] Monique N Nguyen [id number] Monique N Nguyen 05/27/2024 1 [place] [id number] Monique N Nguyen [id number] Monique N Nguyen Notes Date Note Type Note Provider Name and Address Organization Details Recorded Time 04/16/2021 text/html Annual GYNReport ed bypatient.Menstrual cycle:Normal menses Urinary symptoms:No hematuria; No incontinence Vulva:No genital lesion Vagina:Normal vaginal discharge Breast:No breast pain; No breast lump; No nipple discharge Current Contraception:Oral contraceptives Sexual complaints:No sexual complaints; No pain during intercourse; Normal libido Menopausal Symptoms:No menopausal symptoms; Normal vaginal lubrication Psychological symptoms:No depression; No anxiety; No PMDD Amairani Lerma MD Attn: [address] [place], [address], [facility] 04/16/2021 16:00:58 04/22/2022 text/html Annual GYNReport ed bypatient.Menstrual cycle:Normal menses Urinary symptoms:No hematuria; No incontinence Vulva:No genital lesion Vagina:Normal vaginal discharge Breast:No breast pain; No breast lump; No nipple discharge Current Contraception:Oral contraceptives Sexual complaints:No sexual complaints; No pain during intercourse; Normal libido Menopausal Symptoms:No menopausal symptoms; Normal vaginal lubrication Psychological symptoms:No depression; No anxiety; No PMDD Amairani Lerma MD Attn: [address] [place], [address], [facility] 04/22/2022 17:18:36 04/28/2023 text/html Annual GYNReport ed bypatient.Menstrual cycle:Normal menses Urinary symptoms:No hematuria; No incontinence Vulva:No genital lesion Vagina:Normal vaginal discharge Breast:No breast pain; No breast lump; No nipple discharge Current Contraception:Oral contraceptives Sexual complaints:No sexual complaints; No pain during intercourse; Normal libido Menopausal Symptoms:No menopausal symptoms; Normal vaginal lubrication Psychological symptoms:No depression; No anxiety; No PMDD 16 y.o. son broke his femur at football practice, has been 6 weeks, still in wheelchair Amairani Lerma MD Attn: [address] [place], [address], [facility] 04/28/2023 16:23:58 02/23/2024 text/html Patient reportin g vaginal discharge. has had some recurrent vaginal DC in past requiring diflucan Amairani Lerma MD Attn: [address] [place], [address], [facility] 02/23/2024 16:14:52 05/27/2024 text/html Annual GYNReport ed bypatient.Menstrual cycle:Normal menses Urinary symptoms:No hematuria; No incontinence Vulva:No genital lesion Vagina:Normal vaginal discharge Breast:No breast pain; No breast lump; No nipple discharge Current Contraception:Oral contraceptives Sexual complaints:No sexual complaints; No pain during intercourse; Normal libido Menopausal Symptoms:No menopausal symptoms; Normal vaginal lubrication Psychological symptoms:No depression; No anxiety; No PMDD 17 y.o. son doing well period shrinking on OCPs no issues, good spirits Amairani Lerma MD Attn: [address] , [place], [address], [facility] 05/27/2024 14:45:27 OBGyn Episode Ob Episode Information Episode Created Date Number of Fetuses Patient Bloodtype Patient rh Status Prepregnancy Weight lbs Domestic Partner Domestic Partner Phone Father Name Skin Care Consultant Status 07/07/20 14 1 CLOSED Fetus Data First Name Last Name Admitted to NICU Weight (g) Sex Living Outcome Pediatric Complications Fetus ID Race Codes Race Delivery Type , Induced 2407 Charan Calculation Initial Charan Date Initial Exam Date Initial Exam Provider Initial Ultrasound Date Last Menstrual Period Date Ultra Sound Weeks Gestation 0 Eighteen To Twenty Week Charan Update Ultra Sound Date Fundal Height At Umbil Quickening Date Ultra Sound Latest Weeks Gestation Final Charan Confirmed By Final Charan Confirmed Date Final Charan Date Ultra Sound Latest Days Gestation 0 0 Menstrual History Last Menstrual Date Menses Monthly On Bcp Conception Prior Menses Frequency Hcg Plus Date Menarche Onset Age Delivery Information Delivery Date Delivery Type Labor Anesthesia Weeks Gestation Incision Type Labor Labor Length Hrs Delivered By Post Complications Tubal Sterilization Discharge Date Comments 3 Discharge Information Feeding Method Contraceptive Method Maternal HG B and HCT Levels Ob Episode Information Episode Created Date Number of Fetuses Patient Bloodtype Patient rh Status Prepregnancy Weight lbs Domestic Partner Domestic Partner Phone Father Name Skin Care Consultant Status 07/07/20 14 1 CLOSED Fetus Data First Name Last Name Admitted to NICU Weight (g) Sex Living Outcome Pediatric Complications Fetus ID Race Codes Race Delivery Type , Spontane ous 2408 Charan Calculation Initial Charan Date Initial Exam Date Initial Exam Provider Initial Ultrasound Date Last Menstrual Period Date Ultra Sound Weeks Gestation 0 Eighteen To Twenty Week Charan Update Ultra Sound Date Fundal Height At Umbil Quickening Date Ultra Sound Latest Weeks Gestation Final Charan Confirmed By Final Charan Confirmed Date Final Charan Date Ultra Sound Latest Days Gestation 0 0 Menstrual History Last Menstrual Date Menses Monthly On Bcp Conception Prior Menses Frequency Hcg Plus Date Menarche Onset Age Delivery Information Delivery Date Delivery Type Labor Anesthesia Weeks Gestation Incision Type Labor Labor Length Hrs Delivered By Post Complications Tubal Sterilization Discharge Date Comments 7 Discharge Information Feeding Method Contraceptive Method Maternal HG B and HCT Levels Ob Episode Information Episode Created Date Number of Fetuses Patient Bloodtype Patient rh Status Prepregnancy Weight lbs Domestic Partner Domestic Partner Phone Father Name Skin Care Consultant Status 07/07/20 14 1 CLOSED Fetus Data First Name Last Name Admitted to NICU Weight (g) Sex Living Outcome Pediatric Complications Fetus ID Race Codes Race Delivery Type , Spontane ous 2409 Charan Calculation Initial Charan Date Initial Exam Date Initial Exam Provider Initial Ultrasound Date Last Menstrual Period Date Ultra Sound Weeks Gestation 0 Eighteen To Twenty Week Charan Update Ultra Sound Date Fundal Height At Umbil Quickening Date Ultra Sound Latest Weeks Gestation Final Charan Confirmed By Final Charan Confirmed Date Final Charan Date Ultra Sound Latest Days Gestation 0 0 Menstrual History Last Menstrual Date Menses Monthly On Bcp Conception Prior Menses Frequency Hcg Plus Date Menarche Onset Age Delivery Information Delivery Date Delivery Type Labor Anesthesia Weeks Gestation Incision Type Labor Labor Length Hrs Delivered By Post Complications Tubal Sterilization Discharge Date Comments 2 Discharge Information Feeding Method Contraceptive Method Maternal HG B and HCT Levels Ob Episode Information Episode Created Date Number of Fetuses Patient Bloodtype Patient rh Status Prepregnancy Weight lbs Domestic Partner Domestic Partner Phone Father Name Skin Care Consultant Status 07/06/20 14 1 CLOSED Fetus Data First Name Last Name Admitted to NICU Weight (g) Sex Living Outcome Pediatric Complications Fetus ID Race Codes Race Delivery Type 3120.71 296 M [id number] Charan Calculation Initial Charan Date Initial Exam Date Initial Exam Provider Initial Ultrasound Date Last Menstrual Period Date Ultra Sound Weeks Gestation 0 Eighteen To Twenty Week Charan Update Ultra Sound Date Fundal Height At Umbil Quickening Date Ultra Sound Latest Weeks Gestation Final Charan Confirmed By Final Charan Confirmed Date Final Charan Date Ultra Sound Latest Days Gestation 0 0 Menstrual History Last Menstrual Date Menses Monthly On Bcp Conception Prior Menses Frequency Hcg Plus Date Menarche Onset Age Delivery Information Delivery Date Delivery Type Labor Anesthesia Weeks Gestation Incision Type Labor Labor Length Hrs Delivered By Post Complications Tubal Sterilization Discharge Date Comments [address] Lerma failure to progress Discharge Information Feeding Method Contraceptive Method Maternal HG B and HCT Levels
--- OUTSIDE RECORDS SUMMARY | 2024-09-28 18:32 | XMS_ITS | Referral Summary ---
Author Organization [facility] Address [address] [place] [place] [address] Care Team Providers Care Human Services Assistant Name Role Phone Unavailable Primary Care Provider Unavailabl e Source Comments [facility],non-owned Affiliates and Associated Physician Practices is amultiple site organization consisting of ambulatory clinics and hospital sitesin [place], [place], [place] and [place]. This disclosure is being madepursuant to the Care Everywhere program and may not contain all information available regarding this patient. Last updated 18.[facility] Allergies No known active allergies Medications Be aware that medications may not be up to date on this document. Always verify current medications with the patient. No known medications Active Problems No known active problems Social History Tobacco Use Types Packs/Day Years Used Date Smoking Tobacco: Never Smokeless Tobacco: Never Alcohol Use Standard Drinks/Week Comments Never 0 (1 standard drink = 0.6 oz pur e alcohol) AUDIT-C Answer Date Recorded Frequency of Alcohol Consumption Never 05/27/2019 Average Number of Drinks Not on file 019 Frequency of Binge Drinking Not on file 05/04 Sex and Gender Information Value Date Recorded Sex Assigned at Not on file Gender Identity Not on file Sexual Orientation Not on file Last Filed Vital Signs Vital Sign Reading Time Taken Comments Blood Pressure 118/74 05/27/2019 10:32 AM CDT Pulse 67 05/27/2019 10:32 AM CDT Temperature 36.8 C (98.3 F) 05/27/2019 10:32 AM CDT Respiratory Rate 16 05/27/2019 10:32 AM CDT Oxygen Saturation 99% 05/27/2019 10:32 AM CDT Inhaled Oxygen Concentration - - Weight 78.9 kg (174 lb) 05/27/2019 10:32 AM CDT Height 154.9 cm (5' 1 ) 05/27/2019 10:32 AM CDT Body Mass Index 32.88 05/27/2019 10:32 AM CDT Plan of Treatment Not on file
--- OUTSIDE RECORDS SUMMARY | 2024-09-28 18:32 | XMS_ITS | Patient Health Summary ---
Author Organization [facility] Address [address] [place] [address] Care Team Providers Care Clinical Care Leader Name Role Phone Unavailable Primary Care Provider Unavailabl e Note from [facility],non-owned Affiliates and Associated Physician Practices is amultiple site organization consisting of ambulatory clinics and hospital sitesin [place], [place], [place] and [place]. This disclosure is being madepursuant to the Care Everywhere program and may not contain all information available regarding this patient. Last updated 18.[facility] Allergies No known active allergies Medications Be [...] Mass Index 32.88 05/27/2019 10:32 AM CDT Procedures * STREP A SCREEN - POINT OF CARE (AMB) STL(Performed 05/27/2019) Performed for Acute pharyngitis, unspecified etiology Results * STREP A SCREEN - POINT OF CARE (AMB) STL (05/27/2019) Strep A Rapid POCT Negative Negative Strep A Internal Control Present Lot # [id number] Expiration Date 09/02/2020 Throat ENTIRE THROAT (SURFACE REGION OF NECK) / Unknown 05/27/2019 Chris Adam SENIOR CYTOTECHNOLOGIST-WIRE TURNING MACHINE OPERATOR LAB - POINT OF CARE ORDERABLES
--- OUTSIDE RECORDS SUMMARY | 2024-09-28 18:32 | XMS_ITS | Clinical Summary ---
Author Organization [email or web address] Address [address] [place] [address] Care Team Providers Care Rod Mill Operator Name Role Phone Unavailable Primary Care Provider Unavailabl e Source Comments [email or web address],non-owned Affiliates and Associated Physician Practices is amultiple site organization consisting of ambulatory clinics and hospital sitesin [place], [place], [place] and [place]. This disclosure is being madepursuant to the Care Everywhere program and may not contain all information available regarding this patient. Last updated 18.[email or web address] Allergies No known active allergies Medications Be [...] 05/27/2019 10:32 AM CDT Plan of Treatment Health Maintenance Due Date Last Done Comments LIPID TESTING 1981 MAMMOGRAM 1981 PAP SMEAR 1981 HIV SCREENING 1996 HEPATITIS C SCREENING 11/27/1999 DTAP/TDAP/TD VACCINES (1 - Tdap) 2000 HEPATITIS B VACCINE (1 of 3 - 19+ 3-dose series) 2000 COVID-19 VACCINE ( - 2023-2 5 season) 2024 INFLUENZA VACCINE (#1) 2024 DEPRESSION SCREENING 08/03/2024 ZOSTER VACCINE (1 of 2) 12/02/2031 HIB VACCINE Aged Out No longer eligi ble based on patient's age to complete this topic HPV VACCINE Aged Out No longer eligi ble based on patient's age to complete this topic MENINGOCOCCAL (Group B) VACCINE Aged Out No longer eligible based on patient's age to complete this topic MENINGOCOCCAL VACCINE Aged Out No rj frieda eligible based on patient's age to complete this topic PNEUMOCOCCAL VACCINE Aged Out No long er eligible based on patient's age to complete this topic
== END 2024-09-28 17:47 | disposition home or self-care (01) ==
PROVIDERS: Emergency Provider Registered Nurse; PCP Nurse Practitioner Family
DX: J01.40 Acute pansinusitis, unspecified (principal); Z20.822 Contact with and (suspected) exposure to COVID-19; F17.290 Nicotine dependence, other tobacco product, uncomplicated; E78.5 Hyperlipidemia, unspecified; E28.2 Polycystic ovarian syndrome
CPT/HCPCS: 87426; 87804; 99213; G0463